=== PATIENT | female | born 1995 | race Caucasian/White ===

== ENCOUNTER 2021-05-17 22:00 | Inpatient (IN) ==
[2021-05-17] MEDS ORDERED: Azithromycin 500 MG in 0.9 % Sodium Chloride 250 ML IVPB PRN (22:35)
[2021-05-17] MEDS ORDERED: *HR* Nalbuphine 10 MG/ML AMPUL IV PRN (22:35)
[2021-05-17] MEDS ORDERED: Naloxone 0.4 MG/ML INJ IVP PRN ×2 (22:35→23:29)
[2021-05-17] MEDS ORDERED: Famotidine 20 MG/2 ML VIAL IVP PRN (22:35)
[2021-05-17] MEDS ORDERED: Metoclopramide 10 MG/2 ML VIAL IVP PRN (22:35)
[2021-05-17] MEDS ORDERED: Oxytocin 20 units/ LR 1000 mL 20 UNIT/1,000 ML BAG IVC SCH (22:45)
[2021-05-17] MEDS ORDERED: Ringers Solution, Lactated 1,000 ML IVC SCH (22:45)
[2021-05-17 23:11] LABS: Basophils % 0.3 %; Hematocrit 30.7 % (35.3-44.9); Immature Granulocytes % 0.3 % (0-4); Lymphocytes # 2.6 K/mcL (0.6-4.6); Mean Corpuscular HGB Conc 35.8 g/dL (31.6-35.5); Mean Corpuscular Hemoglobin 32.1 pg (28.0-33.3); Mean Corpuscular Volume 89.5 fL (83.0-100.0); Mean Platelet Volume 9.8 fL (9.4-12.4); Monocytes # 0.5 K/mcL (0.0-1.3); Monocytes % 6.7 %; Neutrophils # 4.4 K/mcL (1.6-8.9); Platelet Count 190 K/mcL (140-400); Red Blood Count 3.43 M/mcL (3.82-4.97); Segmented Neutrophils % 58.7 %; White Blood Count 7.5 K/mcL (4.3-11.1)
[2021-05-17 23:16] LABS: Bacteria,Urine Few per hpf (None-Few); Bilirubin,Urine Negative (Negative); Blood,Urine Negative (Negative); Clarity,Urine Clear (Clear); Color,Urine Yellow (Yellow); Glucose,Urine (UA) 50 mg/dL (Normal); Ketones,Urine Trace mg/dL (Negative); Leukocyte Esterase,Urine Small (Negative); Mucus,Urine Moderate per lpf (None-Few); Nitrite,Urine Negative (Negative); Protein,Urine 30 mg/dL (Neg-Trace); RBC,Urine 0-3 per hpf (0-3); Specific Gravity,Urine > 1.030 (1.010-1.025); Squamous Epithelial Cell,Urine Moderate per hpf (None-Few); Urobilinogen,Urine Normal (Normal)
[2021-05-17 23:21] LABS: Amphetamine Screen,Urine Negative ng/mL (Cutoff=1000); Barbiturate Screen,Urine Negative ng/mL (Cutoff=200); Benzodiazepines Screen,Urine Negative ng/mL (Cutoff=200); Cannabinoid Screen,Urine Negative ng/mL (Cutoff = 50); Cocaine Screen,Urine Negative ng/mL (Cutoff= 300); Opiate Screen,Urine Negative ng/mL (Cutoff=300); Phencyclidine Screen,Urine Negative ng/mL (Cutoff=25)
[2021-05-17] MEDS ORDERED: Ropivacaine/PF 0.2% 20 ML VIAL EP ONE (23:29)
[2021-05-17] MEDS ORDERED: EPHEDrine 50 MG/ML VIAL IVP PRN (23:29)
[2021-05-17] MEDS ORDERED: *HR* FentaNYL (PF) 100 MCG/2 ML VIAL EP ONE (23:29)
[2021-05-17] MEDS ORDERED: Ondansetron 4 MG/2 ML VIAL IVP PRN (23:29)
[2021-05-17] MEDS ORDERED: Epidural Premix (fent/bupiv) 110 ML EP SCH (23:30)
[2021-05-17] MEDS: miSOPROStoL 25 MCG TABLET PO PRN (23:41)
[2021-05-18] MEDS: miSOPROStoL 25 MCG TABLET PO PRN (03:57)
[2021-05-18] MEDS ORDERED: Methylergonovine 0.2 MG/ML AMPUL IM ONE (17:18)
[2021-05-18] MEDS ORDERED: Benzocaine/Menthol 56 GM AEROSOL SPRAY TP PRN (20:17)
[2021-05-18] MEDS ORDERED: Oxytocin 20 units/ LR 1000 mL 20 UNIT/1,000 ML BAG IVC SCH (20:17)
[2021-05-18] MEDS ORDERED: Lanolin 7 G OINT...G. TP PRN (20:17)
[2021-05-18] MEDS ORDERED: Ondansetron ODT 4 MG TAB.RAPDIS SL PRN (20:17)
[2021-05-18] MEDS ORDERED: Rho Immune Globulin 1,500 UNIT SYRINGE IM PRN (20:17)
[2021-05-18] MEDS ORDERED: Measles/Mumps/Rubella Vacc 0.5 ML VIAL SQ PRN (20:17)
[2021-05-18] MEDS: Acetaminophen 325 MG TABLET PO SCH (20:57)
[2021-05-18] MEDS: Ibuprofen 600 MG TABLET PO SCH (20:58)
[2021-05-19 05:21] LABS: Basophils # 0.1 K/mcL (0.0-0.2); Basophils % 0.4 %; Hemoglobin 9.4 g/dL (11.5-15.4); Immature Granulocytes % 0.2 % (0-4); Lymphocytes # 3.2 K/mcL (0.6-4.6); Lymphocytes % 25.2 %; Mean Corpuscular HGB Conc 36.2 g/dL (31.6-35.5); Mean Corpuscular Hemoglobin 32.4 pg (28.0-33.3); Mean Corpuscular Volume 89.7 fL (83.0-100.0); Monocytes # 0.9 K/mcL (0.0-1.3); Monocytes % 6.8 %; Neutrophils # 8.4 K/mcL (1.6-8.9); Platelet Count 163 K/mcL (140-400); Red Cell Distribution Width 12.9 % (11.5-14.5); Segmented Neutrophils % 67.4 %; White Blood Count 12.5 K/mcL (4.3-11.1)
[2021-05-19] MEDS: Acetaminophen 325 MG TABLET PO SCH (08:13)
[2021-05-19] MEDS: Ibuprofen 600 MG TABLET PO SCH (08:15)
[2021-05-19] MEDS ORDERED: Prenatal Vit/FA 1 EACH TABLET PO SCH (09:00)
[2021-05-19 14:20] VITALS: BP 111/68; PULSE 83; TEMP 97.8; O2SAT 98
== END 2021-05-19 17:19 | disposition home or self-care (01) ==
LOC: 1NENULAB 22:08 → 1NENUOBS 05-18 20:16
PROVIDERS: ADMIT Obstetrics & Gynecology; ATTEND Obstetrics & Gynecology